=== PATIENT | female | born 1960 | race Caucasian/White ===

== ENCOUNTER 2025-01-13 17:09 | Emergency (ER) | payer OTHER, SELFPAY ==
--- OUTSIDE RECORDS SUMMARY | 2025-01-13 17:12 | XMS_ITS | Clinical Summary ---
Author Organization [facility] Address [address] [place] [address] Care Team Providers Care Metallurgical Engineering Technician Name Role Phone Javier Payne MD Primary Care Provider [phone] Allergies Active Allergy Reactions Criticality Noted Date Comments Morphine Other (See comments) High Reaction: nausea, Medications gabapentin (NEURONTIN) 300 mg capsule TK ONE C PO BID 4 03/05/2018 Active pectin/vit B6/mins 4/c.vinegar (APPLE CIDER VINEGAR COMPLEX ORAL) Take by mouth daily Active HYDROcodone-siva taminophen (NORCO) 5-325 mg per tablet TAKE 1 TABLET BY MOUTH THREE TIMES A DAY FOR 30 DAYS 05/16/2024 Active hydrOXYzine (ATARAX) 25 mg tablet Take 1 tablet (25 mg total) by mouth every 6 (six) hours as needed for itching (tightness in chest) 30 tablet 06/11/2024 Active Synthroid 150 mcg tablet TAKE 1 TABLET(150 MCG) BY MOUTH DAILY 90 tablet 3 09/11/2024 Active Active Problems Problem Noted Date Diagnosed Date BMI 30.0-30.9,adult 06/11/2024 Obesity (BMI 30.0-34.9) 06/11/2024 Palpitations 06/11/2024 Screening for rectal cancer 06/05/2024 Assessment & Plan (06/05/2024 8:36 AM FOOD PRODUCTION MACHINE OPERATOR): Cologuard placed. Will continue to monitor. Kidney stone on left side 05/31/2023 Encounter for osteoporosis s creening in asymptomatic postmenopausal patient 12/16/2022 Assessment & Plan (12/16/2022 4:29 PM CDT): Daily calcium recommendation is 1200 mg/day and 800 international units of vitamin D. Daily weight bearing exercise such as walking helps build bone and prevent bone loss. Encouraged patient to check with her insurance for early screening. Need for immunization against influenza 04/15/19 Assessment & Plan (06/05/2024 8:36 AM FOOD PRODUCTION MACHINE OPERATOR): Flu vaccine given in office. Assessment & Plan (04/16/2021 10:23 AM FOOD PRODUCTION MACHINE OPERATOR): Vaccine given in office today. Reviewed possible side effects/injection site reactions. Annual physical exam 05/29/2020 Assessment & Plan (06/05/2024 8:36 AM FOOD PRODUCTION MACHINE OPERATOR): In regard to health maintenance, Colonoscopy- UTD Mammogram- UTD Influenza vaccine- Given in office today Shingrix vaccine- Getting today at CVA ASCVD risk: 9.4% Eat a healthy diet: focus on lean meats and proteins, more fruits, vegetables and whole grains and low in sugars and fats. Limit red meat and avoid processed meat. Maintain a healthy weight; avoid being overweight. Aim for a normal body mass index (BMI) of 18.5-24.9. Help learning to eat healthier, we can set up appointment with programmer numerical control/airborne operations superintendent. Have an active lifestyle, strive for 30 minutes of moderate exercise 5 times a week and strength or resistance training at least twice a week. Use broad-spectrum (UVA+UVB) sunscreen with SPF 30 or greater, is water resistant, limit time spent in the sun (10 am-4pm), wear hat, wear UV protective clothing, wear sunglasses. Never use a tanning bed. Skin that was irradiated may be more sensitive over your lifetime. Do not smoke or chew tobacco; participate in a smoking cessation program. Limit alcohol intake, 1 drink per day for a woman and 2 drinks per day for a man. Assessment & Plan (05/29/2020 3:16 PM FOOD PRODUCTION MACHINE OPERATOR): 1. Eat a healthy diet: focus on lean meats and proteins, more fruits, vegetables and whole grains and low in sugars and fats. Limit red meat and avoid processed meat. 2. Maintain a healthy weight; avoid being overweight. Aim for a normal body mass index (BMI) of 18.5-24.9. Help learning to eat healthier, we can set up appointment with programmer numerical control/airborne operations superintendent. 3. Have an active lifestyle, strive for 30 minutes of moderate exercise 5 times a week and strength or resistance training at least twice a week. 4. Use broad-spectrum (UVA+UVB) sunscreen with SPF 30 or greater, is water resistant, limit time spent in the sun (10 am-4pm), wear hat, wear UV protective clothing, wear sunglasses. Never use a tanning bed. Skin that was irradiated may be more sensitive over your lifetime. 5. Does not smoke or chew tobacco. 6. Limit alcohol intake, 1 drink per day for a woman. Encounter for screening for lipid disorder 05/29 Assessment & Plan (06/05/2024 8:36 AM FOOD PRODUCTION MACHINE OPERATOR): Lipid panel ordered. Will continue to monitor. Assessment & Plan (04/15/2021 10:54 AM FOOD PRODUCTION MACHINE OPERATOR): Lipid panel ordered today. Assessment & Plan (05/29/2020 3:17 PM FOOD PRODUCTION MACHINE OPERATOR): Lipid panel ordered; will call w/results when received. Reviewed diet/exercise recommendations. Class 1 obesity due to exces s calories without serious comorbidity with body mass index (BMI) of 30.0 to 30.9 in adult 05/29/2020 Assessment & Plan (06/05/2024 8:36 AM FOOD PRODUCTION MACHINE OPERATOR): Encouraged heart healthy diet and lifestyle. Advised 150 min/week of aerobic exercise. Assessment & Plan (04/15/2021 10:55 AM FOOD PRODUCTION MACHINE OPERATOR): Discussed healthy diet and importance of regular physical activity. Assessment & Plan (05/29/2020 3:17 PM FOOD PRODUCTION MACHINE OPERATOR): Reviewed need to lose weight, reviewed health benefits. Reviewed recommendations for daily intake & activity 20-30 minutes/day. Discussed healthy diet and importance of regular physical activity. Closed avulsion fracture of metatarsal bone of l eft foot 01/09/2018 Hypothyroidism 03/25/2014 Overview (07/15/2016): Hypothyroid Assessment & Plan (06/05/2024 8:35 AM FOOD PRODUCTION MACHINE OPERATOR): Continue on Synthroid. Will check TSH and T4. Stable and well controlled. Will continue to monitor. Assessment & Plan (12/16/2022 4:25 PM CDT): Synthroid 150 mcg daily. Will check TSH/T4 and make changes as needed. Lab Results Component Value Date TSH 0.15 (L) 10/19/2021 TSH 0.05 (L) 08/02/2021 TSH 0.03 (L) 04/21/2021 Assessment & Plan (04/15/2021 10:55 AM FOOD PRODUCTION MACHINE OPERATOR): Patient taking levothyroxine 200mcg. TSH ordered today. Lab Results Component Value Date TSH 0.07 (L) 06/04/2020 TSH 0.05 (L) 04/22/2019 TSH 0.39 (L) 03/27/2018 Assessment & Plan (05/29/2020 3:16 PM FOOD PRODUCTION MACHINE OPERATOR): TSH/T4 ordered; will contact with results when received. Reviewed med SE & scheduling. Reviewed sxs hypo/hyperthyroidism. No changes at this time. Jaw pain 03/27/2012 Overview (07/13/2016): Jaw pain Basedow's disease 03/27/2012 Overview (07/15/2016): Graves disease Scoliosis 03/27/2012 Overview (07/15/2016): Scoliosis Lumbago 09/02/2010 Assessment & Plan (06/05/2024 8:35 AM FOOD PRODUCTION MACHINE OPERATOR): Continues to follow with pain clinic. Will continue on Hydrocodone. Will continue to monitor. Stable and controlled. Assessment & Plan (12/16/2022 4:22 PM CDT): Following with Dr. Diaz. Resolved Problems Problem Noted Date Diagnosed Date Resolved Date BMI 29.0-29.9,adult 12/16/2022 06/05/19 Assessment & Plan (12/16/2022 4:26 PM CDT): Patient is working on making dietary changes, states she is currently following keto and feels she is doing very well on it at this time. Encounter for colorectal cancer screening 04/15/2021 06/05/2024 Assessment & Plan (04/15/2021 10:53 AM FOOD PRODUCTION MACHINE OPERATOR): Declines c-scope at this time. Discussed colorectal cancer screening guidelines. No family history of colon cancers. Declines screening with colonoscopy; aware that it is gold standard for CRC screening. Patient is agreeable to cologuard. Aware that kit will be mailed with directions and to call office if not received in 2 weeks. To call office if no results received within 2 weeks of test submission. Need for influenza vaccination 05/29/2020 04/16/2021 Assessment & Plan (05/29/2020 3:18 PM FOOD PRODUCTION MACHINE OPERATOR): Flu vaccine given today. Discussed possible tenderness/redness at injection site. Colon cancer screening 05/29/202004/16 Assessment & Plan (05/29/2020 3:17 PM FOOD PRODUCTION MACHINE OPERATOR): Referral to [facility] for initial colonoscopy. Contact info given. Aware that [facility] should call her to set up. Immunizations Immunization Administration Dates Next Due Influenza, Quadrivalent, Spl it, Intramuscular 05/04/2015 Influenza, Quadrivalent, Spl it, Preservative Free, Intramuscular 12/16/2022,04/15/2021,05/29/2020,03/28,03/21/2018,02/14/2017,01/30/2016 Influenza, Trivalent, Preser vative Free, Intramuscular 06/05/2024,03/25/2014 Influenza, Unspecified 01/08/2022 Pfizer SARS-CoV-2 Monovalent Vaccination (12+ Yrs) PURPLE 03/11/2021,07/30/2020,07/07/2020 ZOSTER Recombinant 06/05/2024 Surgical History Surgery Date Site/Laterality Comments OTHER SURGICAL HISTORY 04/10/1974 - 04/09/1975 Blanco jacqueline instrumentation OTHER SURGICAL HISTORY hypothyroidism s/p hawkins : Treamtent for graves disease OTHER SURGICAL HISTORY 04/10/1990 - 04/09/1991 D & C OTHER SURGICAL HISTORY 04/10/2002 - 04/09/2003 endometrial polyp: partial hysterectomy/both OIP KIDNEY STONE SURGERY 01/09/2016 - 02/08/2016 Dr Thalia Brar KIDNEY STONE SURGERY 04/10/2023 - 04/09/2024 Dr. Yun Medical History Medical History Date Comments Hx Other Medical Hyperthyroidism , Grave's Disease Hypercholesterolemia 06/2011 high choles terol Hx Other Medical 08/1985 hypothyroidism s/p hawkins Hx Other Medical 1974 Scoliosis treat ed with blanco rods Hx Other Medical endometrial dwayne yp Kidney stone Scoliosis Family History Medical History Relation Name Comments Skin cancer Father Cancer, skin; s troke at age 53 mets melanoma Breast cancer Father's Sister Breast cancer Maternal cousin 1 Breast cancer Maternal cousin 2 Heart attack Mother's Sister 2 Myocardial Infarction; Other Other 4 Pacemaker; Heart attack Other 5 Myocardial Infa rction; Ovarian cancer Neg Hx Thyroid cancer Neg Hx Relation Name Status Comments Cousin Father Father's Sister Maternal cousin 1 Other Maternal cousin 2 Mother Alive Mother's Sister 1 Alive Mother's Sister 2 Other 1 Alive Other 2 Alive Other 3 Alive Other 4 Other 5 Other 6 Aunt Alive Social History Tobacco Use Types Packs/Day Years Used Date Smoking Tobacco: Never Smokeless Tobacco: Never Tobacco Cessation:Counseling Given: Not Answered Alcohol Use Standard Drinks/Week Comments Not Currently 0 (1 standard drink = 0.6 oz pur e alcohol) AUDIT-C Answer Date Recorded Frequency of Alcohol Consumption Not on file 06/08/2023 Q2: How many drinks containi ng alcohol do you have on a typical day when you are drinking? Patient does not drink Frequency of Binge Drinking Not on file 05/12 PHQ-2 Answer Date Recorded PHQ-2 Total Score (If total score is 3 or more points, staff should administer the PHQ-9) 0 06/11/2024 Personal Safety Answer Date Recorded Have you ever been in or are you currently in a harmful physical or emotional relationship or is someone making you feel afraid or unsafe? Denies 06/15/2023 Comments No Sex and Gender Information Value Date Recorded Sex Assigned at Not on file Legal Sex Female 2:42 AM FOOD PRODUCTION MACHINE OPERATOR Gender Identity Not on file Sexual Orientation Not on file Obstetrics History Para Term AB IAB SAB Ectopic Multiple Livin g Live Births 4 3 3 Date Outcome GA Total Labor Labor/2nd/3rd Weight Sex Type Anes PTL Pau A1 A5 Name Clin Term Term Term Last Filed Vital Signs Vital Sign Reading Time Taken Comments Blood Pressure 124/74 06/11/2024 9:04 AM FOOD PRODUCTION MACHINE OPERATOR Pulse 78 06/11/2024 9:04 AM FOOD PRODUCTION MACHINE OPERATOR Temperature 36.8 C (98.2 F) 06/11/2024 9:04 AM FOOD PRODUCTION MACHINE OPERATOR Respiratory Rate 20 06/05/2024 8:10 AM FOOD PRODUCTION MACHINE OPERATOR Oxygen Saturation 98% 06/11/2024 9:04 AM FOOD PRODUCTION MACHINE OPERATOR Inhaled Oxygen Concentration - - Weight 82.9 kg (182 lb 12.8 oz) 06/11/2024 9:04 AM FOOD PRODUCTION MACHINE OPERATOR Height 165.1 cm (5' 5) 06/11/2024 9:04 AM FOOD PRODUCTION MACHINE OPERATOR Body Mass Index 30.42 06/11/2024 9:04 AM FOOD PRODUCTION MACHINE OPERATOR Plan of Treatment Health Maintenance Due Date Last Done Comments Hepatitis C Screening 1961 DTaP/Tdap/Td Vaccine (1 - Tdap) 01/29/1972 Hepatitis B Screening 1979 Zoster Vaccine (2 of 2) 07/31/2024 06/05/2024 Covid-19 Vaccine (4 - season) 2024 03/11/2021, 07/30/2020, 07/07/2020 Influenza Vaccine (#1) 2024 , 12/16/2022, 01/08/2022, Additional history exists Breast Cancer Screening-Mammogram 04/26/2025 04/26/2024, 02/22/2023, 01/15/2022, Additional history exists Regular Well Visit/Exam 18-64 06/05/2025 06/05/2024, 05/29/2020, 03/28/2019 Depression Screening 06/11/2025 06/11/2024, 06/05/2024, 12/16/2022, Additional history exists Colon Cancer Screening-DNA Stool 08/02/2027 08/01/2024, 05/19/2021 Colon Cancer Screening-FIT Discontinued 08/01/2024, Pneumococcal vaccine <65 Aged Out No longer eligible based on patient's age to complete this topic Medical Devices Implanted Type Area Particleboard Factory Worker Device Identifier Shelf Expiration Date Model / Serial / Lot [employer] Batsheva Contour 6fr 24cm Large Inner Lumen Low Profile Bladder Ruiz Taper Latex Free [id number] - [id number] Implanted:Qty: 1 on 06/15/2023 by Dereje Yun MD at [facility] Left: Ureter [employer] Batsheva 01/22/2026 [id number] / / [id number] Procedures Procedure Name Priority Date/Time Associated Diagnosis Comments STOOL DNA COLOGUARD Routine 08/01/2024 7:15 AM CDT Screening for rectal cancer SCREENING MAMMOGRAM BILATERAL W SLOAN Schedule Routine, Read Routine (OP Routine) 04/26/2024 12:26 PM FOOD PRODUCTION MACHINE OPERATOR Screening mammogram, encounter for from Last 3 Months or Most Recently Relevant to Health Maintenance Results * Stool DNA - Cologuard (08/01/2024 7:15 AM CDT) Stool DNA - Cologuard Negative Negative [facility] (CLIA #:[id number]) Comment: The Cologuard (TM) test was performed on this specimen. NEGATIVE TEST RESULT. A negative Cologuard result indicates a low likelihood that a colorectal cancer (CRC) or advanced adenoma (adenomatous polyps with more advanced pre-malignant features) is present. The chance that a person with a negative Cologuard test has a colorectal cancer is less than 1 in 1500 (negative predictive value >99.9%) or has an advanced adenoma is less than 5.3% (negative predictive value 94.7%). These data are based on a prospective cross-sectional study of 10,000 individuals at average risk for colorectal cancer who were screened with both Cologuard and colonoscopy. (Nely Perrin al, N Engl J Med 2014;370(14):1286- 1297) The normal value (reference range) for this assay is negative. COLOGUARD RE-SCREENING RECOMMENDATION: Periodic colorectal cancer screening is an important part of preventive healthcare for asymptomatic individuals at average risk for colorectal cancer. Following a negative Cologuard result, the [place] [employer] and U.S. Multi-Society Task Force screening guidelines recommend a Cologuard re-screening interval of 3 years. References: [place] [employer] Guideline for Colorectal Cancer Screening: https://www.cancer.org/cancer/xljjf-cbzacg-ueluof/ipryndcjk-nhvzoscaf-ztrpoju/ac s-rec ommendations.html.; Moi DK, Lauren ASHTON, Vijaya JaimeK, Colorectal Cancer Screening: Recommendations for Physicians and Patients from the U.S. Multi-Society Task Force on Colorectal Cancer Screening , Am J Gastroenterology 2017; 112:4740-4443. TEST DESCRIPTION: Composite algorithmic analysis of stool DNA-biomarkers with hemoglobin immunoassay. Quantitative values of individual biomarkers are not reportable and are not associated with individual biomarker result reference ranges. Cologuard is intended for colorectal cancer screening of adults of either sex, 45 years or older, who are at average-risk for colorectal cancer (CRC). Cologuard has been approved for use by the U.S. FDA. The performance of Cologuard was established in a cross sectional study of average-risk adults aged 50-84. Cologuard performance in patients ages 45 to 49 years was estimated by sub-group analysis of near-age groups. Colonoscopies performed for a positive result may find as the most clinically significant lesion: colorectal cancer [4.0%], advanced adenoma (including sessile serrated polyps greater than or equal to 1cm diameter) [20%] or non- advanced adenoma [31%]; or no colorectal neoplasia [45%]. These estimates are derived from a prospective cross-sectional screening study of 10,000 individuals at average risk for colorectal cancer who were screened with both Cologuard and colonoscopy. (Nely Hernandez, N Engl J Med 2014;370(14):1857-2591.) Cologuard may produce a false negative or false positive result (no colorectal cancer or precancerous polyp present at colonoscopy follow up). A negative Cologuard test result does not guarantee the absence of CRC or advanced adenoma (pre-cancer). The current Cologuard screening interval is every 3 years. ([place] [employer] and U.S. Multi-Society Task Force). Cologuard performance data in a 10,000 patient pivotal study using colonoscopy as the reference method can be accessed at the following location: www.SoundOut.com/results. Additional description of the Cologuard test process, warnings and precautions can be found at www.[employer]illary Technologies[employer].com. Stool 08/01/2024 7:15 AM CDT 08/03/2024 6:28 AM CDT Cassie Herrera NP LAB BODY FLUIDS AND STOOLS OR DERABLES Final Result [facility] (CLIA #:[id number]) [place] [address] * Screening Mammogram Bilateral W Sloan (04/26/2024 12:26 PM FOOD PRODUCTION MACHINE OPERATOR) Anatomical Region Laterality Modality Breast Bilateral Mammography 04/26/2024 12:3 4 PM FOOD PRODUCTION MACHINE OPERATOR Impressions 04/26/2024 12:34 PM FOOD PRODUCTION MACHINE OPERATOR No evidence of malignancy in either breast. FINAL ASSESSMENT: BI-RADS Category 2: Benign. RECOMMENDATION: Recommend return for annual screening mammogram in 12 months. Electronically signed by: Jp Maddox M.D. Narrative 04/26/2024 12:34 PM FOOD PRODUCTION MACHINE OPERATOR EXAMINATION: BILATERAL SCREENING MAMMOGRAM COMPARISON: 02/22/2023, 01/15/2022, 12/05/2020, 11/27/2019 TECHNIQUE: Full-field 2D and digital breast tomosynthesis (DBT) images were obtained. CAD was utilized. BREAST PARENCHYMAL COMPOSITION: There are scattered areas of fibroglandular density. FINDINGS: There are multiple small similar appearing round and oval circumscribed low-density masses in both breasts without suspicious interval change. There is no new suspicious finding in either breast on mammogram. us Self Screening Mammogram IMG MAMMO PROCEDURES Fi nal Result from Last 3 Months or Most Recently Relevant to Health Maintenance Insurance [facility] ANTHEM ACCESS CHOICE [employer] [facility] Care Teams Metallurgical Engineering Technician Relationship Specialty Start Date End Date Javier [place] [address] PCP - General 07/08/16
[2025-01-13 17:42] VITALS: BP 136/81; PULSE 64; RESP 20; TEMP 36.4; O2SAT 99
--- NOTE | 2025-01-13 18:24 | ED_ITS ---
HPI - Skin/Abscess/Foreign Bdy General Chief complaint: Skin/Abscess/Foreign Body Stated complaint: FB in middle of left palm Time Seen by Provider: 01/13/25 18:17 Source: patient and RN notes reviewed Mode of arrival: ambulatory Limitations: no limitations History of Present Illness HPI narrative: 64-year-old female patient presents today with pain and swelling to the palm of her left hand. States she was walking down some stairs in the inside of her home and had her hand on her wooden railing. Believe she either got stung or has a splinter in the palm of her hand. Injury occurred 2.5 hours prior to exam. Denies numbness or tingling. Currently rates her pain 12/18. No OTC treatment prior to arrival. Related Data Home Medications ?Medication ?Instructions ?Recorded ?Confirmed ?Last Taken ?Type gabapentin 300 mg capsule mg 01/13/25 Unknown History hydrocodone 5 mg-acetaminophen 325 tablet 01/13/25 Un known History mg tablet hydroxyzine HCl 25 mg tablet mg 01/13/25 Unknown Hist ory levothyroxine 150 mcg tablet mcg 01/13/25 Unknown His tory (Synthroid) Allergies Allergy/AdvReac Type Severity Reaction Status Date / Time No Known Allergies Allergy Unknown Verified 01/13/25 17:47 [facility] Past Medical History Medical History (Updated 01/13/25 @ 18:30 by Qiana Solorio, [facility], ) Hypothyroidism Comments At time of signature, I have reviewed and agree with nursing past medical, surgical, social and family history unless otherwise noted. Please see nursing chart for further information. There is no relevant family history pertinent to the presenting complaint Exam Narrative: GENERAL: Well-appearing, well-nourished, and in mild pain distress. HEAD: Normocephalic, atraumatic. EYES: EOMI. No redness or drainage. Conjunctivae normal. ENT: Mucous membranes pink and moist. NECK: Normal AROM. CHEST: No respiratory distress. EXTREMITIES: left hand: Small puncture wound to palm with mild swelling to the entire palm with mild erythema. Tenderness about the proximal palm around the puncture wound. Distal sensation intact in all 5 fingers. Capillary refill normal. Radial pulse normal. Full range of motion of the fingers. No obvious foreign body noted. SKIN: Warm, dry, no rash. Capillary refill normal. Normal skin turgor. NEURO: No focal deficits. Alert and oriented x3. Gait steady. PSYCH: Normal affect. No signs of depression or anxiety. Course Course Level of Care: Express Care Visit Vital Signs Vital signs: Vital Signs Temperature 97.6 F 01/13/25 17:42 Pulse Rate 64 01/13/25 17:42 Respiratory Rate 20 01/13/25 17:42 Blood Pressure 136/81 01/13/25 17:42 Pulse Oximetry 99 01/13/25 17:42 Oxygen Delivery Room Air 01/13/25 17:42 Temperature 97.6 F 01/13/25 17:42 Pulse Rate 64 01/13/25 17:42 Respiratory Rate 20 01/13/25 17:42 Blood Pressure 136/81 01/13/25 17:42 Pulse Oximetry 99 01/13/25 17:42 Oxygen Delivery Room Air 01/13/25 17:42 Reviewed MDM - Skin/Abscess/Foreign Bdy MDM Narrative Medical decision making narrative: 64-year-old female patient presents today with pain and swelling to the palm of her left hand. States she was walking down some stairs in the inside of her home and had her hand on her wooden railing. Believe she either got stung or has a splinter in the palm of her hand. Injury occurred 2.5 hours prior to exa m. Upon exam,Small puncture wound to palm with mild swelling to the entire palm with mild erythema. Tenderness about the proximal palm around the puncture wound. Distal sensation intact in all 5 fingers. Capillary refill normal. Radial pulse normal. Full range of motion of the fingers. No obvious foreign body noted. Etiology of injury is likely allergic reaction to insect sting. Will treat with dose of dexamethasone and Benadryl. Prescription for additional prednisone is sent to pharmacy. Vital signs stable. Patient agrees with plan. Anticipatory guidance given. Differential Diagnosis Differential diagnosis: Likely other (Insect sting, foreign body, allergic reaction) Critical Care Time Critical Care Time Critical Care Time: No Discharge Plan Discharge Clinical Impression: Allergic reaction to insect sting Patient Disposition: Home Condition: Stable Instructions: Insect Bite or Sting (ED) Additional Instructions: You have been treated with a dose of steroids and Benadryl for an allergic reaction to an insect sting of your hand. Continue an antihistamine such as Zyrtec, Claritin, or Petrona. Prescription for prednisone has been sent to your pharmacy to start tomorrow. It is recommended that you take it in the morning so does not keep you awake at night. Follow-up with your PCP in 3 days if symptoms are not improving, or sooner if symptoms worsen. Patient Language: Cambodian Prescriptions: New prednisone 20 mg tablet 40 mg PO DAILY 5 Days Qty: 10 0RF No Action hydrocodone-acetaminophen 5-325 mg tablet levothyroxine [Synthroid] 150 mcg tablet gabapentin 300 mg capsule hydroxyzine HCl 25 mg tablet Follow-up/Referrals: Harms,Javier Espino M.D. [Primary Care Provider] Time of Disposition: 18:36
[2025-01-13] MEDS: dexAMETHasone SOD PHOS INJ 10 MG/ML 1 ML VIAL BY MOUTH (18:31)
[2025-01-13] MEDS: diphenhydrAMINE HCl CAP 25 MG CAPSULE PO (18:31)
== END 2025-01-13 18:46 | disposition home or self-care (01) ==
PROVIDERS: Emergency Provider Nurse Practitioner; PCP Family Medicine
DX: S60.562A Insect bite (nonvenomous) of left hand, initial encounter (principal); E03.9 Hypothyroidism, unspecified; Z79.891 Long term (current) use of opiate analgesic; Z79.899 Other long term (current) drug therapy; W57.XXXA Bitten or stung by nonvenomous insect and other nonvenomous arthropods, initial encounter
CPT/HCPCS: 99203; A9270; G0463; J1100